=== PATIENT | female | born 1930 | race Caucasian/White ===

== ENCOUNTER 2016-09-15 09:41 | Emergency (ER) | payer MEDICARE ==
[2016-09-15] MEDS ORDERED: MORPHINE SULFATE 10 MG/ML INJ IV ONE (10:14)
--- NOTE | 2016-09-15 10:24 | ER Document Report ---
ED General - General Chief Complaint: Back Pain Stated Complaint: BACK INJURY Time Seen by Provider: 09/15/16 10:07 Mode of Arrival: Wheelchair Information source: Patient Notes: 86-year-old female presents with complaints of low back pain left flank pain worsening over 4 days. Patient notes the pain makes it difficult for her to walk. Patient denies any actual weakness of her lower extremities. Denies any loss of bowel or bladder function. Patient denies any sudden trauma or heavy lifting. Patient does have a history of Parkinson's but is currently on no medications. Patient took 1 pill which did not improve her pain over 4 days TRAVEL OUTSIDE OF THE [place] IN LAST 30 DAYS: No - HPI Onset: Last week Onset/Duration: Persistent, Worse Quality of pain: Achy Severity: Mild Pain Level: 1 Associated symptoms: Body/muscle aches Exacerbated by: Movement Relieved by: Denies Similar symptoms previously: No Recently seen / treated by doctor: No - Related Data Allergies/Adverse Reactions: erythromycin base [Erythromycin Base] Allergy (Severe, Verified 09/17/13 12:10) Nausea, Vomiting Past Medical History - Social History Smoking Status: Never Smoker Cigarette use (# per day): No Chew tobacco use (# tins/day): No Smoking Education Provided: No Frequency of alcohol use: None Drug Abuse: None Family History: Reviewed & Not Pertinent, Other - Paranoid Schizophrenia Patient has suicidal ideation: No Patient has homicidal ideation: No - Past Medical History Cardiac Medical History: Denies: Hx Coronary Artery Disease, Hx Heart Attack, Hx Hypertension Pulmonary Medical History: Reports: Hx Asthma - No longer treated , Hx Bronchitis, Hx COPD, Hx Pneumonia Neurological Medical History: Denies: Hx Cerebrovascular Accident, Hx Seizures Endocrine Medical History: Reports: Hx Diabetes Mellitus Type 2 Renal/ Medical History: Denies: Hx Peritoneal Dialysis Musculoskeltal Medical History: Denies Hx Arthritis Past Surgical History: Reports: Hx Genitourinary Surgery - bladder mesh x3 - Immunizations Hx Diphtheria, Pertussis, Tetanus Vaccination: Yes Review of Systems - Review of Systems Notes: REVIEW OF SYSTEMS: CONSTITUTIONAL : Denies fever, chills, or sweats. Denies recent illness. EENT: Denies eye, ear, throat, or mouth pain or symptoms. Denies nasal or sinus congestion or discharge. Denies throat, tongue, or mouth swelling or difficulty swallowing. CARDIOVASCULAR: Denies chest pain. Denies palpitations or racing or irregular heart beat. Denies ankle edema. RESPIRATORY: Denies cough, cold, or chest congestion. Denies shortness of breath, difficulty breathing, or wheezing. GASTROINTESTINAL: Denies abdominal pain or distention. Denies nausea, vomiting , or diarrhea. Denies blood in vomitus, stools, or per rectum. Denies black, tarry stools. Denies constipation. GENITOURINARY: Denies difficulty urinating, painful urination, burning, frequency, blood in urine, or discharge. FEMALE GENITOURINARY: Denies vaginal bleeding, heavy or abnormal periods, irregular periods. Denies vaginal discharge or odor. MUSCULOSKELETAL: admits to lumbar back pain , left flank pain SKIN: Denies rash, lesions or sores. HEMATOLOGIC : Denies easy bruising or bleeding. LYMPHATIC: Denies swollen, enlarged glands. NEUROLOGICAL: admits to hx of parkinsons PSYCHIATRIC: Denies anxiety or stress. Denies depression, suicidal ideation, or homicidal ideation. ALL OTHER SYSTEMS REVIEWED AND NEGATIVE. PHYSICAL EXAMINATION: GENERAL: Well-appearing, well-nourished and in no acute distress. HEAD: Atraumatic, normocephalic. EYES: Pupils equal round and reactive to light, extraocular movements intact, conjunctiva are normal. ENT: Nares patent, oropharynx clear without exudates. Moist mucous membranes. NECK: Normal range of motion, supple without lymphadenopathy LUNGS: Breath sounds clear to auscultation bilaterally and equal. No wheezes rales or rhonchi. HEART: Regular rate and rhythm without murmurs ABDOMEN: Soft, nontender, nondistended abdomen. No guarding, no rebound. No masses appreciated. Female : deferred Musculoskeletal: tenderness in the lumbar region generalized NEUROLOGICAL: tremors PSYCH: Normal mood, normal affect. SKIN: Warm, Dry, normal turgor, no rashes or lesions noted. Dictation was performed using [employer] voice recognition software Physical Exam - Vital signs Vitals: Temp Pulse Resp BP Pulse Ox 97.9 F 89 20 156/99 H 97 09/15/16 09:44 09/15/16 09:44 09/15/16 09:44 09/15/16 09:44 09/15/16 09:44 Course - Re-evaluation Re-evalutation: 09/15/16 10:27 Patient has not taken any real pain control, she will be given the very low- dose morphine, imaging is pending given her age and concern. Patient has very good strength in her lower extremities 09/15/16 12:29 CT noted no significant abnormality urinalysis is consistent with infection. Patient was able to ambulate. She will be discharged home with antibiotics and pain control is otherwise very well-appearing After performing a Medical Screening Examination, I estimate there is LOW risk for ACUTE APPENDICITIS, BOWEL OBSTRUCTION, ACUTE CHOLECYSTITIS, PERFORATED DIVERTICULITIS, INCARCERATED HERNIA, PANCREATITIS, PELVIC INFLAMMATORY DISEASE, PERFORATED ULCER, ECTOPIC , or TUBO-OVARIAN ABSCESS, thus I consider the discharge disposition reasonable. Also, there is no evidence or peritonitis , sepsis, or toxicity. I have reevaluated this patient multiple times and no significant life threatening changes are noted. The patient and I have discussed the diagnosis and risks, and we agree with discharging home with close follow-up with the understanding that symptoms and presentations can change. We also discussed returning to the Emergency Department immediately if new or worsening symptoms occur. We have discussed the symptoms which are most concerning (e.g., bloody stool, fever, changing or worsening pain, vomiting) that necessitate immediate return. - Vital Signs Vital signs: Temp Pulse Resp BP Pulse Ox 97.9 F 89 20 150/62 H 97 09/15/16 09:44 09/15/16 09:44 09/15/16 09:44 09/15/16 11:39 09/15/16 11:39 - Laboratory Result Diagrams: 09/15/16 10:20 09/15/16 10:20 Laboratory results interpreted by me: 09/15/16 09/15/16 10:20 12:06 Glucose 131 H Alkaline Phosphatase 143 H Urine Ketones 20 H Urine Nitrite POSITIVE H Ur Leukocyte Esterase MODERATE H - Diagnostic Test Radiology reviewed: Image reviewed, Reports reviewed - no acute abnormlaity Discharge - Discharge Clinical Impression: Flank pain Back pain Qualifiers: Back pain location: low back pain Chronicity: acute Back pain laterality: left Sciatica presence: with sciatica Sciatica laterality: sciatica of left side Qualified Code(s): M54.42 - Lumbago with sciatica, left side Condition: Stable Disposition: HOME, SELF-CARE Instructions: Abdominal Pain ([facility]) Additional Instructions: Follow up with your physician tomorrow for further care or return to the ED IMMEDIATELY if symptoms worsen or new concerns occur. If you cannot afford to follow up with your primary care physician a list of low cost clinics have been provided at the end of your discharge papers as well. Prescriptions: Cephalexin Monohydrate [Keflex 500 mg Capsule] 500 mg PO BID #14 capsule Hydrocodone/Acetaminophen [Edcouch 5-325 mg Tablet] 1 tab PO Q6 #10 tablet
[2016-09-15 10:37] LABS: ABSOLUTE MONOCYTES (AUTO) 0.7 10^3/uL (0.1-1.4); ABSOLUTE NEUT (AUTO) 5.2 10^3/uL (1.7-8.2); BASOPHILS % (AUTO) 0.4 % (0-2); EOSINOPHILS % (AUTO) 0.3 % (0-6); HEMATOCRIT 42.6 % (36.0-47.0); HEMOGLOBIN 14.6 g/dL (12.0-15.5); HGB HCT DIFFERENCE 1.2; LYMPHOCYTES % (AUTO) 25.5 % (13-45); MEAN CORPUSCULAR HEMOGLOBIN 31.7 pg (27.0-33.4); MEAN CORPUSCULAR HGB CONC 34.2 g/dL (32.0-36.0); MEAN CORPUSCULAR VOLUME 93 fl (80-97); MONOCYTES % (AUTO) 8.4 % (3-13); RED BLOOD COUNT 4.59 10^6/uL (3.72-5.28); RED CELL DISTRIBUTION WIDTH 13.4 % (11.5-14.0); SEGMENTED NEUTROPHILS % (AUTO) 65.4 % (42-78)
[2016-09-15 10:48] LABS: ALANINE AMINOTRANSFERASE 37 U/L (9-52); ALBUMIN 4.5 g/dL (3.5-5.0); ALKALINE PHOSPHATASE 143 U/L (38-126); ANION GAP 14 (5-19); ASPARTATE AMINO TRANSFERASE 20 U/L (14-36); BILIRUBIN,DIRECT 0.3 mg/dL (0.0-0.4); BILIRUBIN,TOTAL 1.1 mg/dL (0.2-1.3); BLOOD UREA NITROGEN 14 mg/dL (7-20); CALCIUM 9.8 mg/dL (8.4-10.2); CARBON DIOXIDE 24 mmol/L (22-30); CHLORIDE 103 mmol/L (98-107); CREATININE RESULT 0.69 mg/dL (0.52-1.25); GLUCOSE 131 mg/dL (75-110); POTASSIUM 4.3 mmol/L (3.6-5.0); TOTAL PROTEIN 7.7 g/dL (6.3-8.2)
--- NOTE | 2016-09-15 11:58 | RADIOLOGY REPORT (SQ) ---
EXAM DESCRIPTION: CT ABD/PELVIS WITH IV ONLY COMPLETED DATE/TIME: 09/15/2016 11:31 am REASON FOR STUDY: back pain COMPARISON: Abdominal ultrasound 12/05/2012 TECHNIQUE: CT scan of the abdomen and pelvis performed using helical scanning technique with dynamic intravenous contrast injection. No oral contrast. Images reviewed with lung, soft tissue, and bone windows. Reconstructed coronal and sagittal MPR images reviewed. Delayed images for evaluation of the urinary system also acquired. All images stored on PACS. All CT scanners at this facility use dose modulation, iterative reconstruction, and/or weight based d osing when appropriate to reduce radiation dose to as low as reasonably achievable (ALARA). [facility]: Dose Right [facility]: CareDose [facility]: Dose Right [facility]: Teradose 4D [facility]: [employer] CONTRAST TYPE AND DOSE: contrast/concentration: Isovue 370.00 mg/ml; Total Contrast Delivered: 50.0 ml; Total Saline Delivered: 65.0 ml RENAL FUNCTION: Creatinine 0.69 RADIATION DOSE: Up-to-date CT equipment and radiation dose reduction techniques were employed. CTDIv ol: 5.0 - 6.0 mGy. DLP: 461 mGy-cm.. LIMITATIONS: Motion artifact FINDINGS: LOWER CHEST: No significant findings. No nodules or infiltrates. LIVER: Normal size. No masses. No dilated ducts. SPLEEN: Normal size. No focal lesions. PANCREAS: No masses. No significant calcifications. No adjacent inflammation or peripancreatic fluid collections. Pancreatic duct not dilated. GALLBLADDER: No identified stones by CT criteria. No inflammatory changes to suggest cholecystitis. ADRENAL GLANDS: No significant masses or asymmetry. RIGHT KIDNEY AND URETER: No solid masses. No significant calcifications. No hydronephrosis or hyd roureter. LEFT KIDNEY AND URETER: No solid masses. No significant calcifications. No hydronephrosis or hydr oureter. AORTA AND VESSELS: No aneurysm. No dissection. Renal arteries, SMA, celiac without stenosis. RETROPERITONEUM: No retroperitoneal adenopathy, hemorrhage or masses. BOWEL AND PERITONEAL CAVITY: No masses or inflammatory changes. No free fluid or peritoneal masses. APPENDIX: Normal. PELVIS: No mass. No free fluid. Normal bladder. ABDOMINAL WALL: No masses. No hernias. BONES: Multilevel degenerative disc changes are present, with mild degenerative convex leftward lumba r curvature, diffuse facet arthropathy with multilevel foraminal narrowing. OTHER: No other significant finding. IMPRESSION: No acute changes. 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 TECHNICAL DOCUMENTATION: JOB ID: [id number] Quality ID # [id number]: Final reports with documentation of one or more dose reduction techniques (e.g., Au tomated exposure control, adjustment of the mA and/or kV according to patient size, use of iterative reconstruction technique) 2010 [employer]- All Rights Reserved
[2016-09-15 12:26] LABS: APPEARANCE,URINE SLIGHTLY-CLOUDY; BILIRUBIN,URINE NEGATIVE (NEGATIVE); GLUCOSE, URINE NEGATIVE (NEGATIVE); KETONES,URINE 20 mg/dL (NEGATIVE); LEUKOCYTE ESTERASE,URINE MODERATE (NEGATIVE); NITRITE,URINE POSITIVE (NEGATIVE); PROTEIN,URINE NEGATIVE (NEGATIVE); URINE SPECIFIC GRAVITY 1.032; UROBILINOGEN,URINE NEGATIVE mg/dL (<2.0)
[2016-09-15 12:44] VITALS: BP 144/80
== END 2016-09-15 12:45 | disposition home or self-care (01) ==
LOC: ER 09:41
DX: M54.42 Lumbago with sciatica, left side (principal); R10.9 Unspecified abdominal pain; R53.1 Weakness; M54.9 Dorsalgia, unspecified
CPT/HCPCS: 99284; 96374; 36415; 85025; 80053; 81001; 74177; J2270

== ENCOUNTER 2017-06-13 06:15 | Emergency (ER) | payer MEDICARE ==
--- NOTE | 2017-06-13 06:46 | ER Document Report ---
ED Fall - General Chief Complaint: Fall Stated Complaint: FALL Time Seen by Provider: 06/13/17 06:18 Notes: 87-year-old female patient from a nursing facility lost her balance and fell backwards. Hit the back of her head. No loss of consciousness. Denies any other pain other than pain in her scalp. Patient was transported by EMS in [facility]. TRAVEL OUTSIDE OF THE [place] IN LAST 30 DAYS: No - HPI Occurred: This morning [facility] Context: Lost balance Associated symptoms: None Quality of pain: Dull Severity: Mild Pain Level: 1 Prehospital interventions: C-collar - Related data Allergies/Adverse Reactions: erythromycin base [Erythromycin Base] Allergy (Severe, Verified 09/17/13 12:10) Nausea, Vomiting Past Medical History - General Information source: Patient, [facility] Records - Social History Smoking Status: Unknown if Ever Smoked Cigarette use (# per day): No Frequency of alcohol use: None Drug Abuse: None [facility] with: [facility] Family History: Reviewed & Not Pertinent, Other - Paranoid Schizophrenia Patient has suicidal ideation: No Patient has homicidal ideation: No - Past Medical History Cardiac Medical History: Denies: Hx Coronary Artery Disease, Hx Heart Attack, Hx Hypertension Pulmonary Medical History: Reports: Hx Asthma - No longer treated , Hx Bronchitis, Hx COPD, Hx Pneumonia Neurological Medical History: Denies: Hx Cerebrovascular Accident, Hx Seizures Endocrine Medical History: Reports: Hx Diabetes Mellitus Type 2 Renal/ Medical History: Denies: Hx Peritoneal Dialysis Musculoskeltal Medical History: Denies Hx Arthritis Past Surgical History: Reports: Hx Genitourinary Surgery - bladder mesh x3 - Immunizations Hx Diphtheria, Pertussis, Tetanus Vaccination: Yes Review of Systems - Review of Systems Constitutional: No symptoms reported EENT: Other - Tenderness to palpation to the occipital scalp with significant hematoma. No active bleeding. No scalp lacerations. Cardiovascular: No symptoms reported Respiratory: No symptoms reported Gastrointestinal: No symptoms reported Genitourinary: No symptoms reported Female Genitourinary: No symptoms reported Musculoskeletal: See HPI. denies: Back pain, Joint pain, Muscle pain Skin: No symptoms reported Hematologic/Lymphatic: No symptoms reported Neurological/Psychological: No symptoms reported Physical Exam - Vital signs Vitals: Pulse Ox 93 06/13/17 06:20 Interpretation: Normal - General General appearance: Appears well, Alert - HEENT Head: Normocephalic, Tenderness, Other - There is some mild scalp hematoma present. No active bleeding.. No: Contreras's sign, Ecchymosis, Racoon's eyes Eyes: Normal Pupils: PERRL - Respiratory Respiratory status: No respiratory distress Chest status: Nontender Breath sounds: Normal Chest palpation: Normal - Cardiovascular Rhythm: Regular Heart sounds: Normal auscultation Murmur: No - Abdominal Inspection: Normal Distension: No distension Bowel sounds: Normal Tenderness: Nontender Organomegaly: No organomegaly - Back Back: Normal, Nontender - Extremities General upper extremity: Normal inspection, Nontender, Normal color, Normal ROM , Normal temperature General lower extremity: Normal inspection, Nontender, Normal color, Normal ROM , Normal temperature. No: Cadence's sign - Neurological Neuro grossly intact: Yes Cognition: Normal Orientation: AAOx4 [place] Coma Scale Eye Opening: Spontaneous [place] Coma Scale Verbal: Oriented [place] Coma Scale Motor: Obeys Commands Sergey Coma Scale Total: 15 Speech: Normal Motor strength normal: LUE, RUE, LLE, RLE Sensory: Normal - Skin Skin Temperature: Warm Skin Moisture: Dry Skin Color: Normal Course - Re-evaluation Re-evalutation: 06/13/17 07:[address] and cervical spine CT unremarkable. At this time will DC. Will DC collar and sent home. - Vital Signs Vital signs: Temp Pulse Resp BP Pulse Ox 12 140/73 H 98 06/13/17 06:25 06/13/17 06:25 06/13/17 07:08 Discharge - Discharge Clinical Impression: Contusion of occipital region of scalp Qualifiers: Encounter type: initial encounter Qualified Code(s): S00.03XA - Contusion of scalp, initial encounter Condition: Good Disposition: HOME, SELF-CARE Instructions: Head Injury Precautions ([facility]), Contusion ([facility]) Additional Instructions: Please follow-up with your regular doctor. If you begin to have excessive nausea, vomiting, dizziness, worsening pain please notify someone or return to the emergency department for further treatment
--- NOTE | 2017-06-13 07:26 | RADIOLOGY REPORT (SQ) ---
EXAM DESCRIPTION: CT HEAD WITHOUT CLINICAL HISTORY: Fall/trauma. Injury. COMPARISON: None available TECHNIQUE: Axial CT of the head obtained from the skull apex to the skull base without contrast. FINDINGS: No acute intracranial hemorrhage identified. No mass, mass effect, shift of the midline, abnormal extra-axial fluid collection or CT evidence of acute ischemic change identified. The ventricular system and sulcal spaces are mildly enlarged compatible with mild cerebral atrophy. Scattered areas of hypodensity throughout the supratentorial white matter are nonspecific and may be related to chronic small vessel ischemic change. The visualized paranasal sinuses and the mastoids are clear. No skull fracture identified. Contusion in the posterior scalp soft tissues. Visualized orbits and globes are unremarkable. Atherosclerotic calcification of the intracranial internal carotid arteries. DLP:963.96 mGy-cm IMPRESSION: 1. No acute intracranial abnormality by CT criteria. This exam was performed according to our departmental dose-optimization program, which includes automated exposure control, adjustment of the mA and/or kV according to patient size and/or use of iterative reconstruction technique.
--- NOTE | 2017-06-13 07:27 | RADIOLOGY REPORT (SQ) ---
EXAM DESCRIPTION: CT CERVICAL SPINE WITHOUT CLINICAL HISTORY: fall COMPARISON: None available TECHNIQUE: Axial CT of the cervical spine obtained without contrast. FINDINGS: Straightening of the cervical lordosis is likely secondary to patient positioning. The atlantoaxial, atlantodental, and occipitoatlantal intervals are preserved. No fracture identified. Vertebral body height preserved. Prevertebral soft tissues are unremarkable. Severe multilevel loss of intervertebral disc height with endplate spondylosis and uncovertebral spurring. Facet arthropathy. Mild multilevel osseous neural foraminal narrowing. No definite central canal narrowing. Visualized skull base is intact. No fracture of the visualized facial bones. Visualized mastoid air cells and paranasal sinuses are well aerated. Visualized thyroid is unremarkable. No cervical lymphadenopathy. No pneumothorax in the visualized lung apices. DLP: 183.75 mGy-cm IMPRESSION: 1. No acute fracture or subluxation of the cervical spine. 2. Multilevel degenerative change throughout the cervical spine. This exam was performed according to our departmental dose-optimization program, which includes automated exposure control, adjustment of the mA and/or kV according to patient size and/or use of iterative reconstruction technique.
[2017-06-13 08:10] VITALS: BP 137/79
== END 2017-06-13 08:27 | disposition home or self-care (01) ==
LOC: ER 06:15
DX: S09.90XA Unspecified injury of head, initial encounter (principal); W19.XXXA Unspecified fall, initial encounter; Y92.129 Unspecified place in nursing home as the place of occurrence of the external cause; Z88.3 Allergy status to other anti-infective agents; E11.9 Type 2 diabetes mellitus without complications; S00.03XA Contusion of scalp, initial encounter
CPT/HCPCS: 70450; 72125; 99284

== ENCOUNTER 2017-06-15 12:36 | Emergency (ER) | payer MEDICARE ==
--- NOTE | 2017-06-15 13:14 | RADIOLOGY REPORT (SQ) ---
EXAM DESCRIPTION: CT HEAD WITHOUT COMPLETED DATE/TIME: 06/15/2017 1:03 pm REASON FOR STUDY: fall, AMS COMPARISON: 06/13/2017 TECHNIQUE: Axial images acquired through the brain without intravenous contrast. Images reviewed wi th bone, brain and subdural windows. Images stored on PACS. All CT scanners at this facility use dose modulation, iterative reconstruction, and/or weight based d osing when appropriate to reduce radiation dose to as low as reasonably achievable (ALARA). [facility]: Dose Right [facility]: CareDose [facility]: Dose Right [facility]: Teradose 4D [facility]: Smart [employer] RADIATION DOSE: CT Rad equipment meets quality standard of care and radiation dose reduction techniq ues were employed. CTDIvol: 53.2 mGy. DLP: 964 mGy-cm. mGy. LIMITATIONS: None. FINDINGS: VENTRICLES: Prominent. CEREBRUM: No masses. No hemorrhage. No midline shift. Areas of low density in the white matter mos t likely due to chronic micro-vascular ischemic change. No evidence for acute infarction. CEREBELLUM: No masses. No hemorrhage. No alteration of density. No evidence for acute infarction. EXTRAAXIAL SPACES: Mild age-related involutional change. No fluid collections. No masses. ORBITS AND GLOBE: No intra- or extraconal masses. Normal contour of globe without masses. CALVARIUM: No fracture. PARANASAL SINUSES: Stable degree of mucosal thickening. No air-fluid levels. SOFT TISSUES: Parietal scalp hematoma. OTHER: No other significant finding. IMPRESSION: SCALP HEMATOMA WITHOUT FRACTURE OR ACUTE INTRACRANIAL PROCESS. NO ADDITIONAL SIGNIFICANT CHANGE FROM 06/13/2017. EVIDENCE OF ACUTE STROKE: NO. TECHNICAL DOCUMENTATION: JOB ID: [id number] Quality ID # [id number]: Final reports with documentation of one or more dose reduction techniques (e.g., Au tomated exposure control, adjustment of the mA and/or kV according to patient size, use of iterative reconstruction technique) 2010 [employer]- All Rights Reserved Reading location - IP/workstation name: [email or web address]
[2017-06-15 13:57] LABS: ABSOLUTE EOSINOPHILS # (AUTO) 0.1 10^3/uL (0.0-0.6); ABSOLUTE LYMPHOCYTES (AUTO) 1.1 10^3/uL (0.5-4.7); ABSOLUTE MONOCYTES (AUTO) 0.8 10^3/uL (0.1-1.4); ABSOLUTE NEUT (AUTO) 4.9 10^3/uL (1.7-8.2); BASOPHILS % (AUTO) 0.3 % (0-2); EOSINOPHILS % (AUTO) 0.9 % (0-6); HEMOGLOBIN 13.4 g/dL (12.0-15.5); LYMPHOCYTES % (AUTO) 16.1 % (13-45); MEAN CORPUSCULAR HEMOGLOBIN 31.3 pg (27.0-33.4); MEAN CORPUSCULAR HGB CONC 33.5 g/dL (32.0-36.0); MEAN CORPUSCULAR VOLUME 93 fl (80-97); MONOCYTES % (AUTO) 11.8 % (3-13); PLATELET COUNT 204 10^3/uL (150-450); RED BLOOD COUNT 4.29 10^6/uL (3.72-5.28); RED CELL DISTRIBUTION WIDTH 13.7 % (11.5-14.0); SEGMENTED NEUTROPHILS % (AUTO) 70.9 % (42-78); TOTAL CELLS COUNTED % (AUTO) 100 %; WHITE BLOOD COUNT 6.9 10^3/uL (4.0-10.5)
[2017-06-15 14:00] LABS: ALANINE AMINOTRANSFERASE 27 U/L (9-52); ALBUMIN 4.2 g/dL (3.5-5.0); ALKALINE PHOSPHATASE 106 U/L (38-126); ANION GAP 12 (5-19); ASPARTATE AMINO TRANSFERASE 16 U/L (14-36); BILIRUBIN,DIRECT 0.3 mg/dL (0.0-0.4); BILIRUBIN,TOTAL 0.8 mg/dL (0.2-1.3); BLOOD UREA NITROGEN 24 mg/dL (7-20); CALCIUM 9.9 mg/dL (8.4-10.2); CARBON DIOXIDE 27 mmol/L (22-30); CHLORIDE 103 mmol/L (98-107); GLUCOSE 161 mg/dL (75-110); POTASSIUM 4.3 mmol/L (3.6-5.0); SODIUM 141.7 mmol/L (137-145)
[2017-06-15 16:09] LABS: APPEARANCE,URINE TURBID; BILIRUBIN,URINE NEGATIVE (NEGATIVE); COLOR,URINE AMBER; GLUCOSE, URINE 150 mg/dL (NEGATIVE); KETONES,URINE TRACE mg/dL (NEGATIVE); LEUKOCYTE ESTERASE,URINE NEGATIVE (NEGATIVE); NITRITE,URINE NEGATIVE (NEGATIVE); PROTEIN,URINE NEGATIVE (NEGATIVE); UROBILINOGEN,URINE NEGATIVE mg/dL (<2.0)
--- NOTE | 2017-06-15 16:23 | ER Document Report ---
ED General - General Chief Complaint: Altered Mental Status Stated Complaint: ALTERED MENTAL STATUS Time Seen by Provider: 06/15/17 12:53 Notes: Patient is brought in because she is been more confused and more difficulty walking with balance disturbance. She has a history of Parkinson's with a very severe tremor of both arms. She has trouble walking and fell a couple of days ago. She was seen here and had a CT scan that did not show any acute abnormality. Her workup was essentially normal and she was sent back to [facility], an assisted living facility locally. Patient was started on amantadine 200 mg twice a day in April to try to control her Parkinson's tremor. Her daughter says that she does not think the amantadine has helped any. She questions if this new medication may be causing the patient's symptoms and I think it certainly possible. TRAVEL OUTSIDE OF THE [place] IN LAST 30 DAYS: No - Related Data Allergies/Adverse Reactions: erythromycin base [Erythromycin Base] Allergy (Severe, Verified 06/15/17 12:47) Nausea, Vomiting Past Medical History - Social History Smoking Status: Never Smoker Frequency of alcohol use: None Drug Abuse: None Family History: Reviewed & Not Pertinent, Other - Paranoid Schizophrenia Patient has suicidal ideation: No Patient has homicidal ideation: No Pulmonary Medical History: Reports: Hx Asthma - No longer treated , Hx Bronchitis, Hx COPD, Hx Pneumonia Endocrine Medical History: Reports: Hx Diabetes Mellitus Type 2 Past Surgical History: Reports: Hx Genitourinary Surgery - bladder mesh x3, Hx Hysterectomy - Immunizations Hx Diphtheria, Pertussis, Tetanus Vaccination: Yes Review of Systems - Review of Systems Notes: REVIEW OF SYSTEMS: CONSTITUTIONAL : Denies fever. Tremor. Not sure how reliable patient's answers are. Nurse says the patient know she is at the emergency room and on slow and knows that the president of [facility] is president Magi. She will share that information with me as much as I tried to pry it out of her. EENT: Denies eye, ear, nose or mouth or throat pain or other symptoms. CARDIOVASCULAR: Denies chest pain. RESPIRATORY: Denies cough, chest congestion, or shortness of breath. GASTROINTESTINAL: Denies abdominal pain or nausea, vomiting, or diarrhea. GENITOURINARY: Denies difficulty or painful urinating, urinary frequency, blood in urine. MUSCULOSKELETAL: Denies back or neck pain. Denies joint pain or swelling. SKIN: Denies rash or skin lesions. NEUROLOGICAL: See HPI. Significant tremor with both upper extremities. ALL OTHER SYSTEMS REVIEWED AND NEGATIVE. Physical Exam - Vital signs Vitals: Pulse Ox 96 06/15/17 12:40 Interpretation: Normal - Notes Notes: PHYSICAL EXAMINATION: GENERAL: Well-appearing, attempts to answer questions and some of her answers are appropriate. She follows commands as requested. HEAD: Atraumatic, normocephalic. No hematomas present. EYES: Pupils equal round and reactive to light, extraocular movements intact. ENT: oropharynx clear without exudates. Moist mucous membranes. NECK: Normal range of motion, supple. LUNGS: Breath sounds clear and equal bilaterally. HEART: Regular rate and rhythm without murmurs. ABDOMEN: Soft, nontender. No guarding or rebound. No masses. BACK: No tenderness throughout entire back. EXTREMITIES: Normal range of motion without pain. NEUROLOGICAL: Patient does not appear to be able to ambulate except with assistance. Awake, alert, but not oriented x3. Very notable tremor of both upper extremities. PSYCH: Normal mood, normal affect. SKIN: Warm, dry, no rashes. Course - Re-evaluation Re-evalutation: 06/15/17 19:34 Workup here today with essentially all lab studies normal. CT scan of the head again negative. Urinalysis was normal, no infection. I spoke with ISSA Cordero, who is the primary care provider for this patient at [facility]. She said that she will be able to check on the patient Saturday, although she is out of town now. We are agreeable that it seems a reasonable approach for the patient to be observed without any other studies being done at this time. Patient is a DNR. I spoke with patient's daughter, who questions if patient's symptoms could be related to the amantadine which was just started on little over a month ago. I think it is entirely possible that it could be reduced to the amantadine although I do not have any way of proving that except to see if her symptoms improve by discontinuing the medications. Since the amantadine was designed to be for symptomatic relief, I think it is a reasonable approach to have her stop taking it for the next week and see what happens. - Vital Signs Vital signs: Temp Pulse Resp BP Pulse Ox 98.0 F 18 139/91 H 98 06/15/17 16:26 06/15/17 16:26 06/15/17 16:26 06/15/17 16:26 - Laboratory Result Diagrams: 06/15/17 12:42 06/15/17 12:42 Laboratory results interpreted by me: 06/15/17 06/15/17 12:42 15:20 BUN 24 H Glucose 161 H Urine Glucose (UA) 150 H Urine Ketones TRACE H Discharge - Discharge Clinical Impression: Altered mental status, Parkinsons disease, Tremor, Medication side effect Condition: Stable Disposition: HOME, SELF-CARE Additional Instructions: Altered Mental Status An altered mental status is a change in the normal functioning of the brain. This alteration of function can range from minor decreased brain function with some forgetfulness and confusion to complete loss of consciousness and coma. There are many possible causes of an altered mental status and include brain injuries such as trauma or strokes, problems with oxygen supply to the brain, fever and infections of the brain and/or elsewhere in the body, metabolic abnormalities such as low or high blood sugar, overdoses or excessive medication ingestion, and mental and psychiatric illnesses. Sometimes the altered mental status resolves and a definite cause is not determined. If a cause for your altered mental status was found, it has likely been corrected. Your evaluation has not shown any condition that requires that you be admitted to the hospital. It is believed that you are safe to leave and return to your home. If you have a return of your symptoms, you should return for re-evaluation. Parkinson's Disease Parkinson's Disease is caused by loss of dopamine from specific areas of the brain. It usually starts later in life. Parkinson's Disease is a degenerative problem, and there is no permanent cure. The disease usually gets worse with time, but it's hard to tell how quickly the disease will advance. Many patients live a long, happy, and normal life despite symptoms of Parkinson' s. Symptoms of Parkinson's Disease can include tremor in the hands, bobbing head motion, rigid muscles, and difficulty with walking and speech. Medicines such as levodopa, carbidopa, amantadine, bromocriptine, and aldepryl can decrease symptoms, but they do not cure the disease. Take frequent rest breaks during the day. Also, get regular moderate exercise to keep muscle tone and cardiovascular health. You will need close follow-up with your doctor to match your medication schedule to the symptoms. NORMAL EXAM AND WORKUP: At this time, your examination and workup show no significant abnormality. No significant abnormal physical findings were noted. All laboratory, EKG, and imaging (x-ray, CT scans, ultrasound) studies that were ordered show no significant abnormality. Although your examination and all studies that were ordered showed no significant abnormal finding, there are no examinations and no studies that are 100% accurate. There is always the possibility that some abnormality could exist and not be detected with physical examination or within the limits and capabilities of laboratory and other studies. You should return or follow up as you were instructed on your visit today for further evaluation if your symptoms do not resolve. Possible medication Side Effects to amantadine Your unpleasant symptoms MAY BE due to a drug you're taking. These symptoms are a common side effect of the medicine. It's not a true allergy. We stop any unnecessary drugs when bothersome side effects occur. Sometimes we'll substitute a different type of drug. In other cases, we must continue the drug. If so, we try to find a way to decrease the side effects. Many side effects decrease with time. Call us if the symptoms don't go away. Amantadine You have been given a prescription for amantadine. This is an anti-viral medication active against type A influenza. It has no effect on type B flu or other viral illnesses. Amantadine may be used to prevent influenza, or to reduce the severity of the illness (if started early enough). Amantadine (Symmetrel) has also been used in the treatment of Parkinson's disease, and in treating disorders of movement caused by psychiatric drugs. Common side effects of amantadine are nausea, lightheadedness, and insomnia. Report any other unusual symptom to your physician. Stop taking the amantadine for now. It can be restarted by your primary care provider later in the week, if that is felt necessary. FOLLOW-UP CARE: If you have been referred to a physician for follow-up care, call the physician s office for an appointment as you were instructed or within the next two days. If you experience worsening or a significant change in your symptoms, notify the physician immediately or return to the Emergency Department at any time for re-evaluation.
[2017-06-15 16:41] VITALS: BP 139/91
== END 2017-06-15 16:41 | disposition home or self-care (01) ==
LOC: ER 12:36
DX: T50.905A Adverse effect of unspecified drugs, medicaments and biological substances, initial encounter (principal); R41.82 Altered mental status, unspecified; G20 Parkinson's disease; R25.1 Tremor, unspecified; W19.XXXA Unspecified fall, initial encounter; Z79.899 Other long term (current) drug therapy; J45.909 Unspecified asthma, uncomplicated; E11.9 Type 2 diabetes mellitus without complications
CPT/HCPCS: 36415; 51701; 70450; 80053; 81001; 83735; 85025; 87086; 99285

== ENCOUNTER 2017-06-16 02:38 | Emergency (ER) | payer MEDICARE ==
[2017-06-16] MEDS ORDERED: AMANTADINE HCL 100 MG CAPSULE PO ONE ×2 (02:53→03:23)
--- NOTE | 2017-06-16 04:36 | RADIOLOGY REPORT (SQ) ---
EXAM DESCRIPTION: CT HEAD WITHOUT CLINICAL HISTORY: trauma COMPARISON: None available TECHNIQUE: Axial CT of the head obtained from the skull apex to the skull base without contrast. FINDINGS: No acute intracranial hemorrhage identified. No mass, mass effect, shift of the midline, abnormal extra-axial fluid collection or CT evidence of acute ischemic change identified. The ventricular system and sulcal spaces are mildly enlarged compatible with mild cerebral atrophy. Scattered areas of hypodensity throughout the supratentorial white matter are nonspecific and may be related to chronic small vessel ischemic change. The visualized paranasal sinuses and the mastoids are clear. No skull fracture identified. Visualized orbits and globes are unremarkable. Atherosclerotic calcification of the intracranial internal carotid arteries. Extensive contusion in the left scalp soft tissues. DLP: 963.96 mGy-cm IMPRESSION: 1. No acute intracranial abnormality by CT criteria. 2. Extensive left posterior scalp subcutaneous hematoma. This exam was performed according to our departmental dose-optimization program, which includes automated exposure control, adjustment of the mA and/or kV according to patient size and/or use of iterative reconstruction technique.
--- NOTE | 2017-06-16 04:38 | RADIOLOGY REPORT (SQ) ---
EXAM DESCRIPTION: PELVIS AP CLINICAL HISTORY: trauma COMPARISON: None. FINDINGS: Single view of the pelvis. No acute fracture or dislocation. Osteopenia. Degenerative change of the spine. No abnormalities of the pelvic soft tissues. IMPRESSION: No acute fracture or dislocation.
[2017-06-16 04:41] LABS: APPEARANCE,URINE CLEAR; BILIRUBIN,URINE NEGATIVE (NEGATIVE); COLOR,URINE YELLOW; GLUCOSE, URINE 150 mg/dL (NEGATIVE); KETONES,URINE 20 mg/dL (NEGATIVE); LEUKOCYTE ESTERASE,URINE NEGATIVE (NEGATIVE); NITRITE,URINE NEGATIVE (NEGATIVE); PROTEIN,URINE NEGATIVE (NEGATIVE); URINE SPECIFIC GRAVITY 1.021; UROBILINOGEN,URINE NEGATIVE mg/dL (<2.0)
--- NOTE | 2017-06-16 04:41 | RADIOLOGY REPORT (SQ) ---
EXAM DESCRIPTION: CHEST SINGLE VIEW CLINICAL HISTORY: falls COMPARISON: None. FINDINGS: Single frontal view of the chest. Atherosclerotic calcification and tortuosity of thoracic aorta. Leads overlie the chest. Heart is not enlarged. No consolidation, pneumothorax, or pleural effusion. No displaced rib fractures identified. Upper abdominal soft tissues are unremarkable. IMPRESSION: 1. No acute pulmonary process identified.
--- NOTE | 2017-06-16 05:28 | ER Document Report ---
ED General - General Chief Complaint: Fall Stated Complaint: FALL Time Seen by Provider: 06/16/17 02:50 Notes: Patient is an 87-year-old female presents with complaint of fall. She has history of Parkinson's disease she also has some hallucinations. She was just seen here yesterday. At that time Kwasi Magana MD spoke with the daughter. The daughter was concerned that since the patient has been on the amantadine that her hallucinations have gotten worse. She has had problems with other person type medications in the past and causing hallucinations and therefore decided to hold medication. Medication was held yesterday. Tonight the patient again. She hit her head. She initially complained to paramedics of pain in the sacral region but denies pain there at this time to me. She has no other complaints at this time. She does have some obvious hallucinations and at times will ramble on about things not consistent with what is going on now and other times she will answer questions appropriately. TRAVEL OUTSIDE OF THE [place] IN LAST 30 DAYS: No - Related Data Allergies/Adverse Reactions: erythromycin base [Erythromycin Base] Allergy (Severe, Verified 06/15/17 12:47) Nausea, Vomiting Past Medical History - Social History Smoking Status: Never Smoker Chew tobacco use (# tins/day): No Frequency of alcohol use: None Drug Abuse: None Family History: Reviewed & Not Pertinent, Other - Paranoid Schizophrenia Patient has suicidal ideation: No Patient has homicidal ideation: No - Past Medical History Cardiac Medical History: Denies: Hx Coronary Artery Disease, Hx Heart Attack, Hx Hypertension Pulmonary Medical History: Reports: Hx Asthma - No longer treated , Hx Bronchitis, Hx COPD, Hx Pneumonia Neurological Medical History: Denies: Hx Cerebrovascular Accident, Hx Seizures Endocrine Medical History: Reports: Hx Diabetes Mellitus Type 2 Renal/ Medical History: Denies: Hx Peritoneal Dialysis Musculoskeltal Medical History: Denies Hx Arthritis Past Surgical History: Reports: Hx Genitourinary Surgery - bladder mesh x3, Hx Hysterectomy - Immunizations Hx Diphtheria, Pertussis, Tetanus Vaccination: Yes Review of Systems - Review of Systems Notes: My Normal Review Basic REVIEW OF SYSTEMS: CONSTITUTIONAL : Denies fever, chills, or sweats. Denies recent illness. RESPIRATORY: Denies cough, cold, or chest congestion. Denies shortness of breath, difficulty breathing, or wheezing. GASTROINTESTINAL: Denies abdominal pain. Denies nausea, vomiting, or diarrhea. GENITOURINARY: Denies difficulty urinating, painful urination, burning, frequency, or blood in urine. MUSCULOSKELETAL: Denies neck or back pain or joint pain or swelling. SKIN: Denies rash or skin lesions. NEUROLOGICAL: Hallucinations. Denies headache. Denies weakness or paralysis or loss of use of either side. Denies problems with gait or speech. Denies sensory or motor loss. ALL OTHER SYSTEMS REVIEWED AND NEGATIVE. Physical Exam - Vital signs Vitals: BP Pulse Ox 136/79 H 95 06/16/17 02:52 06/16/17 02:52 - Notes Notes: General Appearance: Well nourished, alert, cooperative, no acute distress, no obvious discomfort. Vitals: reviewed, See vital signs table. Head: Small scalp hematoma to the back of the head. Eyes: PERRL, EOMI, Conjuctiva clear Mouth: No decreasd moisture Throat: No tonsillar inflammation, No airway obstruction, No lymphadenopathy Ears: No cerumen impaction in either ear canal. TMs are christie without erythema or signs of infection. Neck: Supple, no neck tenderness Back: No tenderness palpation of thoracic or lumbar spine. Lungs: No wheezing, No rales, No rhonci, No accessory muscle use, good air exchange bilaterally. Heart: Normal rate, Regular rythm, No murmur, no rub Abdomen: Normal BS, soft, No rigidity, No abdominal tenderness, No guarding, no rebound, no abdominal masses, no organomegaly Extremities: strength 5/5 in all extremities, good pulses in all extremities, no swelling or tenderness in the extremities, no edema. Skin: warm, dry, appropriate color, no rash Neuro: speech clear, responds appropriately to some questions. Has baseline tremor where her hands and arms are constant shaking. Patient will answer some questions appropriately and the other times not give appropriate answers. She is able to move her extremities on her own but does have tremor associated with this. Distal sensation intact. facial movements are symmetric Course - Re-evaluation Re-evalutation: 06/16/17 05:40 I did call and speak with the patient's daughter. I talked her length about her history. It appears that the patient has had a tremor for a long time. Appears that she has had these episodes of hallucinations with medications for Parkinson to try to control her tremor; however, every time she started medications seems to get the hallucinations. Daughter says that she had similar reaction to carbidopa levodopa. That is why they want to stop the amantadine. Informed her that I recommend that we stop the amantadine gradually stopping it immediately can sometimes have some potential side effects. She is understanding of this and agrees. Around the discharge instructions for her to be titrated down to 100 mg twice daily and then she is supposed be reevaluated by the patient audiology assistant on Saturday at the detention. CT scan of the head was negative. Pelvic x-ray is normal. She does not have any other signs of trauma or areas of pain on exam. I feel she is safe to be discharged home. She has no evidence of UTI or pneumonia. She is to return to ER if she has severe headache, worsening confusion, vomiting, or she appears unwell. Dictation of this chart was performed using voice recognition software; therefore, there may be some unintended grammatical errors. - Vital Signs Vital signs: Temp Pulse Resp BP Pulse Ox 98.2 F 68 21 H 130/69 H 96 06/16/17 02:54 06/16/17 02:54 06/16/17 03:01 06/16/17 03:01 06/16/17 03:01 - Laboratory Laboratory results interpreted by me: 06/16/17 03:45 Urine Glucose (UA) 150 H Urine Ketones 20 H Discharge - Discharge Clinical Impression: Tremor Fall Qualifiers: Encounter type: initial encounter Qualified Code(s): W19.XXXA - Unspecified fall, initial encounter Condition: Good Disposition: HOME, SELF-CARE Additional Instructions: Please slowly titrate off the Amantadine. Please take 100mg twice a day. Than have the physician at the detention continue the titration until she is no longer taking the medication. Please return to the ER immediately if Mrs. Mcclain has recurrent falls or if you have further concerns. Please do not allow her to walk by herself. She should walk with assistance only.
[2017-06-16 06:11] VITALS: BP 136/90
== END 2017-06-16 06:15 | disposition home or self-care (01) ==
LOC: ER 02:38
DX: R44.3 Hallucinations, unspecified (principal); R25.1 Tremor, unspecified; W19.XXXA Unspecified fall, initial encounter; G20 Parkinson's disease; Z88.3 Allergy status to other anti-infective agents; Z90.710 Acquired absence of both cervix and uterus; E11.9 Type 2 diabetes mellitus without complications
CPT/HCPCS: 99285; 51701; 81001; 71045; 72170; 70450; A9270; J3490

== ENCOUNTER → 2017-07-05 | Outpatient (CLI) | payer MEDICARE ==
--- NOTE | 2017-07-05 16:47 | RADIOLOGY REPORT (SQ) ---
EXAM DESCRIPTION: MRI HEAD WITHOUT COMPLETED DATE/TIME: 07/05/2017 4:27 pm REASON FOR STUDY: S06.0X0A CONCUSSION WITHOUT LOSS OF CONSCIOUSNESS, INITIAL ENCOUNTER S06.0X0A CON CUSSION WITHOUT LOSS OF CONSCIOUSNESS, INITIAL E COMPARISON: CT brain 06/16/2017, 06/15/2017, 06/13/2017, 09/07/2013 MRI brain 04/14/2013 TECHNIQUE: Multiplanar imaging includes non-contrasted T1, T2, FLAIR, and diffusion with ADC map seq uences. Images stored on PACS. LIMITATIONS: None. FINDINGS: ANATOMY: No developmental anomalies. Normal vascular flow voids. Pituitary fossa normal. CSF SPACES: Normal in size and contour for age. No hemorrhage. CEREBRUM: Sulci and gyri normal in size and contour. Age-appropriate minimal increased deep perivent ricular white matter signal on FLAIR imaging from small vessel disease. No evidence of acute hemorrh age, mass, or extraaxial fluid collection. No MRI evidence of acute ischemic change. POSTERIOR FOSSA: No signal alteration. No hemorrhage. No edema, masses or mass effect. Internal sigifredo tory canals, cerebello-pontine angles, mastoids normal. DIFFUSION IMAGING: Negative for acute or sub-acute infarction. ORBITS: No masses. Globes normal. PARANASAL SINUSES: No fluid levels. Mucosa normal. OTHER: Susceptibility Imaging-No T2* evidence of abnormal parenchymal iron deposition. Diffusion ten sor imaging is unremarkable. IMPRESSION: Age-appropriate appearance of the brain. No acute findings EVIDENCE OF ACUTE STROKE: NO. TECHNICAL DOCUMENTATION: JOB ID: [id number] [employer]- All Rights Reserved Reading location - IP/workstation name: [email or web address]
== END ==
LOC: RAD 15:52
PROVIDERS: ATTEND Nurse Practitioner Acute Care
DX: S06.0X0A Concussion without loss of consciousness, initial encounter (principal); X58.XXXA Exposure to other specified factors, initial encounter
CPT/HCPCS: 70551